=== PATIENT | male | born 1980 | race African-American/Black ===

== ENCOUNTER 2017-01-07 20:15 | Inpatient (IN) | payer SELFPAY ==
[2017-01-07 22:45] LABS: BASO % 0.3 % (0-2); EOS % 0.1 % (0-7); HCT-HEMATOCRIT 44.7 % (36.0-53.5); HGB-HEMOGLOBIN 15.5 gm/dl (13.5-17.0); IMMATURE GRANULOCYTES ABSOLUTE 0.12 tho/cmm (0-0.03); IMMATURE GRANULOCYTES PERCENT 0.8 % (0-0.3); LYMPH % 10.2 % (20-45); LYMPH ABSOLUTE COUNT 1.6 tho/cmm (0.8-4.5); MCH (MEAN CORPUSCULAR HGB) 29.8 pg (28.0-32.0); MCHC MEAN CORPUSCULAR HGB CONC 34.7 % (32.0-36.0); MCV (MEAN CELL VOLUME) 85.8 fl (82.0-96.0); MEAN PLATELET VOLUME 10.5 cmc (9.4-12.4); MONO % 6.7 % (0-12); MONOCYTE ABSOLUTE COUNT 1.1 tho/cmm (0.0-1.2); NEUTROPHIL ABSOLUTE COUNT 12.9 tho/cmm (1.6-8.0); NEUTROPHIL-AUTOMATED 12.9 tho/cmm (1.6-8.0); NEUTROPHILS % 81.9 % (40-80); PLATELET COUNT 222 tho/cmm (150-450); RED BLOOD COUNT 5.21 mil/cmm (4.40-5.70); RED CELL DISTRIBUTION WIDTH 14.5 % (12.4-16.4); WHITE BLOOD COUNT 15.7 tho/cmm (4.0-10.0)
[2017-01-07 23:05] LABS: ALB/GLOB RATIO 0.8 (0.8-2.0); ALBUMIN 3.7 g/dl (3.5-5.0); ALCOHOL (ETOH) <10 mg/dl (<10); ALKALINE PHOSPHATASE 121 U/L (33-138); ALT/SGPT 41 U/L (12-78); ANION GAP 14 mmol/L (0-20); AST/SGOT 27 U/L (10-40); BILIRUBIN,TOTAL 0.3 mg/dl (0.0-1.5); BLOOD UREA NITROGEN 16 mg/dl (6-24); CALCIUM 8.6 mg/dl (8.5-10.5); CARBON DIOXIDE-VENOUS 26 mmol/L (22-32); CHLORIDE 104 mmol/l (96-110); CREATININE 1.34 mg/dl (0.60-1.30); GLUCOSE 125 mg/dL (70-110); MAGNESIUM 2.7 mg/dl (1.3-2.6); POTASSIUM 3.8 mmol/L (3.7-5.1); PROLACTIN 5 ng/ml (2.5-17.4); SODIUM 140 mmol/L (135-145); eGFR VALUE FOR BLACK 80 mL/Min
[2017-01-07 23:07] LABS: TSH-THYROID STIMULATING HORM. 0.81 uIU/ml (0.40-3.80)
[2017-01-07 23:13] LABS: ACETAMINOPHEN LEVEL <10 ug/ml (10-30); SALICYLATE <2.8 mg/dl (2.8-20)
[2017-01-07 23:14] LABS: URINE APPEARANCE CLEAR; URINE BILIRUBIN NEGATIVE (NEG); URINE BLOOD SMALL (NEG); URINE COLOR YELLOW; URINE GLUCOSE (UA) NEGATIVE (NEG); URINE KETONE SMALL (NEG); URINE LEUKOCYTE ESTERASE NEGATIVE (NEG); URINE NITRITE NEGATIVE (NEG); URINE PROTEIN MODERATE (NEG); URINE SPECIFIC GRAVITY 1.025 (1.003-1.030)
[2017-01-07 23:19] LABS: URINE EPITHELIAL CELLS RARE /[HPF] (0-10)
[2017-01-08] MEDS ORDERED: KEPPRA500 M3 PO (16:36)
== END 2017-01-08 17:30 | DRG 101 ==
LOC: EDMED 20:15 → EMR2 01-08 01:50 → 5EB 01-08 03:57
PROVIDERS: Emergency Medicine; ADMIT Hospitalist
DX: G40.909 Epilepsy, unspecified, not intractable, without status epilepticus (principal); N17.9 Acute kidney failure, unspecified; Z87.820 Personal history of traumatic brain injury; F31.9 Bipolar disorder, unspecified; F10.21 Alcohol dependence, in remission; F19.21 Other psychoactive substance dependence, in remission; F17.210 Nicotine dependence, cigarettes, uncomplicated; R00.0 Tachycardia, unspecified
CPT/HCPCS: G0480; J1650; J1953; J3411; J7030